=== PATIENT | male | born 1950 | race Two or more races ===

== ENCOUNTER 2022-09-01 13:56 | Outpatient (CLI) | payer OTHER | END 2022-09-01 13:59 | disposition home or self-care (01) | LOC: SONOGRAMA 13:56 | PROVIDERS: ATTEND Pathology Anatomic Pathology & Clinical Pathology | DX: E04.2 Nontoxic multinodular goiter (principal); D44.0 Neoplasm of uncertain behavior of thyroid gland ==

== ENCOUNTER 2025-04-13 07:45 | Inpatient (IN) | payer OTHER ==
[~2025-04-13] VITALS: Ht 182.9 cm; Wt 93.0 kg
[2025-04-13 09:10] VITALS: BP 150/100
[2025-04-13 09:17] LABS: BASO % 1.0 % (0.1-1.2); EOS # 0.16 (0.04-0.54); EOS % 3.3 % (0.7-7.0); LYMPH # 1.25 (1.18-3.74); LYMPH % 25.5 % (19.3-53.1); MEAN PLATELET VOLUME 11.10 fl (9.4-12.4); MONO # 0.58 (0.24-0.82); MONO % 11.8 % (4.7-12.5); NEUT # 2.84 (1.56-6.13); NEUT % 58.0 % (34.0-71.1); RED CELL DISTRIBUTION WIDTH 13.2 % (11.6-14.4)
[2025-04-13 09:19] LABS: URINE APPEARANCE Clear; URINE BILIRRUBIN Negative (NEGATIVE); URINE BLOOD Negative; URINE COLOR Yellow; URINE GLUCOSE Negative (NEGATIVE); URINE KETONE Negative (NEGATIVE); URINE LEUKOCYTE Negative; URINE NITRATE Negative; URINE PROTEIN Negative (NEGATIVE); URINE UROBILINOGEN 0.2 E.U./dl
[2025-04-13] MEDS ORDERED: AMLODIPINE-OLM1 EACH (09:36)
[2025-04-13] MEDS ORDERED: AVAPRO150 MG (09:36)
[2025-04-13] MEDS ORDERED: BISOPROLOL FUMAR5 MG PO (09:36)
[2025-04-13] MEDS ORDERED: PEPCID40 MG PO (09:37)
[2025-04-13 09:40] LABS: INR 1.02
[2025-04-13 09:53] LABS: ALT/SGPT 48.0 U/L (12-78); AST/SGOT 31.0 U/L (15-37); BILIRUBIN TOTAL 1.22 mg/dL (0.3-1.2); BUN CREA RATIO 20.0 (7.0-25.0); CREATININE SERUM 0.88 mg/dL (0.70-1.30); GFR 84.2; GLOBULINA 3.1 G/DL (2.4-3.5); GLUCOSE FASTING 89.0 mg/dL (65-100); OSMOLALITY SERUM 292.0 MOSM/KG (275-295)
[2025-04-13 09:54] LABS: URINE BACTERIA 3.5 uL (0.0-1933); URINE CAST 0.00 uL (0.0-1.40); URINE EPITHELIAL CELLS 0.4 uL (0.0-38.8); URINE RBC 1.6 uL (0.0-20.8); URINE WBC 0.9 uL (0.0-23.2)
[2025-04-20] MEDS ORDERED: DEXAMETHASONE SODIUM PHOSPHATE 4 MG/ML VIAL ONE (13:26)
[2025-04-20] MEDS ORDERED: ONDANSETRON HCL 2 MG/ML VIAL IV PRN (15:30)
[2025-04-20] MEDS ORDERED: ENALAPRILAT DIHYDRATE 1.25 MG/ML VIAL IV PRN (15:30)
[2025-04-20] MEDS ORDERED: MORPHINE SULFATE 4 MG/ML VIAL IV ONE ×2 (16:00→17:00)
[2025-04-20] MEDS ORDERED: CYCLOBENZAPRINE HCL 5 MG TABLET PO SCH (17:00)
[2025-04-20] MEDS ORDERED: TRAMADOL HCL 50 MG TABLET PO SCH (17:00)
[2025-04-20] MEDS ORDERED: DIPHENHYDRAMINE HCL 75 MG,LIDOCAINE HCL 30 ML,MAG HYDROX/ALUMINUM HYD/SIMETH 30 ML PO SCH (17:00)
[2025-04-20] MEDS ORDERED: ACETAMINOPHEN 500 MG GEL..CAP PO SCH (17:00)
[2025-04-20 20:04] VITALS: BP 163/88; O2SAT 96
[2025-04-20] MEDS ORDERED: PANTOPRAZOLE SODIUM 40 MG/VIAL VIAL IV PUSH SCH (21:00)
[2025-04-20] MEDS ORDERED: MAG HYDROX/ALUMINUM HYD/SIMETH 30 ML BLIST.PACK PO ONE (23:11)
[2025-04-21] MEDS ORDERED: AMLODIPINE BESYLATE 5 MG TABLET PO SCH (09:00)
[2025-04-21] MEDS ORDERED: IRBESARTAN 150 MG TABLET PO SCH (09:00)
== END 2025-04-21 09:55 | disposition home or self-care (01) | DRG 627 ==
LOC: SURH 04-20 07:45 → O/R 04-20 13:23 → SURH 04-20 16:34
PROVIDERS: ADMIT Surgery; ATTEND Surgery
PROC: 0GTG0ZZ Resection of Left Thyroid Gland Lobe, Open Approach (ICD-10-PCS; principal; 2025-04-20 12:15)
DX: E04.2 Nontoxic multinodular goiter (principal)